=== PATIENT | male | born 1970 | race Caucasian/White ===

== ENCOUNTER → 2023-04-04 | Outpatient (CLI) | payer OTHER ==
--- NOTE | 2023-04-11 18:04 | MR ---
EXAMINATION TYPE: MR shoulder LT wo con DATE OF EXAM: 04/04/2023 COMPARISON: None HISTORY: Felix shoulder pain TECHNIQUE: Multiplanar, multisequence imaging of the left shoulder is performed without contrast. FINDINGS: The osseous structures are intact and no bone contusion or fracture. There is moderate to marked osteophytic change of the acromioclavicular joint.. Secondary to the dege nerative changes of the AC joint, there is moderate to marked shoulder impingement. The glenohumeral joint is intact. There is no tear of the cartilaginous labrum and the biceps anchor is intact. There is a full-thickness tear of the distal supraspinatus tendon with mild retraction of the musculo tendinous junction. There is a rim rent tear of the infraspinatus tendon. The subscapularis tendon is intact. The biceps tendon is normal in signal intensity and position within the bicipital groove. The periarticular soft tissues are unremarkable. There is no joint effusion. There is no subacromial or subdeltoid bursitis. IMPRESSION: 1. Tears of both the infraspinatus and supraspinatus tendons as described above. 2. 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
--- NOTE | 2023-04-11 18:32 | MR ---
EXAMINATION TYPE: MR shoulder RT wo con DATE OF EXAM: 04/04/2023 COMPARISON: None HISTORY: Felix shoulder pain, Rt side dislocated TECHNIQUE: Multiplanar, multisequence imaging of the right shoulder is performed without contrast. FINDINGS: There are multiple findings consistent with an anterior inferior glenohumeral dislocation. There is a large Hill-Sachs deformity in the posterolateral humeral head with marked bone marrow edema. There i s disruption of the anterior inferior glenohumeral ligament consistent with a HAGL lesion. There is a tear of the anterior inferior labrum with the glenoid chondral defect consistent with a GLAD lesion as well. There is marked thickening and diffuse abnormal signal in the subscapularis tendon and of th e middle glenohumeral ligament consistent with partial tearing/edema. There is moderate to marked osteoarthritic change of the AC joint resulting in moderate shoulder impi ngement. There is a full-thickness tear of the supraspinatus tendon with mild retraction of the musculotendino us junction. There is a partial tear of the infraspinatus tendon without retraction of the musculoten dinous junction. The biceps anchor and superior cartilaginous labrum are intact. There is no joint effusion. There is moderate subdeltoid and subacromial bursitis. IMPRESSION: 1. Rotator cuff tears as described above. 2. Findings consistent with prior anterior/inferior glenohumeral dislocation with a Hill-Sachs Sachs deformity, HAGL lesions and GLAD lesions involving the anterior inferior cartilaginous labrum and ant erior inferior glenohumeral ligament. 3. Partial tearing/edema of the subscapularis tendon and middle glenohumeral ligament. 4. Subacromial and subdeltoid bursitis. 5. Moderate to marked degeneration of the AC joint resulting in shoulder impingement.
== END | disposition home or self-care (01) ==
LOC: RADMRIMAIN 05:53
PROVIDERS: ATTEND Orthopaedic Surgery
DX: S43.431A Superior glenoid labrum lesion of right shoulder, initial encounter (principal); M19.011 Primary osteoarthritis, right shoulder; M25.812 Other specified joint disorders, left shoulder